=== PATIENT | female | born 1970 | race Two or more races ===

== ENCOUNTER → 2021-01-13 | Emergency (ER) | payer OTHER ==
[~2021-01-13] VITALS: Ht 167.6 cm; Wt 86.2 kg
== END | disposition left against medical advice (07) ==
LOC: ER 15:45
DX: D64.9 Anemia, unspecified (principal); N93.8 Other specified abnormal uterine and vaginal bleeding; Z11.52 Encounter for screening for COVID-19

== ENCOUNTER 2021-04-15 16:28 | Inpatient (IN) | payer OTHER ==
[~2021-04-15] VITALS: Ht 167.6 cm; Wt 82.1 kg
== END 2021-04-18 21:19 | disposition home or self-care (01) | DRG 812 ==
LOC: ER 16:28 → SEC-K 21:22 → MEDI 21:22
PROVIDERS: ADMIT Internal Medicine; ATTEND Internal Medicine
PROC: 30233N1 Transfusion of Nonautologous Red Blood Cells into Peripheral Vein, Percutaneous Approach (ICD-10-PCS; principal; 2021-04-15)
DX: D64.9 Anemia, unspecified (principal); Z20.822 Contact with and (suspected) exposure to COVID-19; R53.1 Weakness

== ENCOUNTER 2021-05-05 09:15 | Inpatient (IN) | payer OTHER ==
[~2021-05-05] VITALS: Ht 152.4 cm; Wt 82.1 kg
[2021-05-05] MEDS ORDERED: IRON325 MG PO (11:14)
== END 2021-05-09 12:40 | disposition home or self-care (01) | DRG 743 ==
LOC: EDSTATUS 09:15 → ADM 09:15 → O/R 05-07 07:49 → OB/GYN 05-07 09:15 → SURH 05-07 20:07
PROVIDERS: ADMIT Obstetrics & Gynecology Gynecologic Oncology; ATTEND Obstetrics & Gynecology Gynecologic Oncology
PROC: 0UB70ZZ Excision of Bilateral Fallopian Tubes, Open Approach (ICD-10-PCS; 2021-05-07)
PROC: 0UT90ZZ Resection of Uterus, Open Approach (ICD-10-PCS; principal; 2021-05-07 10:30)
DX: D25.1 Intramural leiomyoma of uterus (principal); D64.9 Anemia, unspecified; D25.2 Subserosal leiomyoma of uterus; N83.8 Other noninflammatory disorders of ovary, fallopian tube and broad ligament; N72 Inflammatory disease of cervix uteri; N93.9 Abnormal uterine and vaginal bleeding, unspecified

== ENCOUNTER 2021-10-28 15:26 | Emergency (ER) | payer OTHER ==
[~2021-10-28] VITALS: Ht 167.6 cm; Wt 89.4 kg
[~2021-10-28 15:26] MED LIST: IRON325 MG PO
== END 2021-10-28 20:23 | disposition home or self-care (01) ==
LOC: ER 15:26
DX: J32.9 Chronic sinusitis, unspecified (principal); I10 Essential (primary) hypertension; Z91.013 Allergy to seafood